=== PATIENT | female | born 1945 | race Caucasian/White ===

== ENCOUNTER 2017-04-24 17:33 | Observation (INO) ==
[2017-04-24] MEDS ORDERED: Scopolamine Patch 1.5 MG PATCH.TD72 TD ONE (17:51)
[2017-04-24] MEDS ORDERED: *HR* Promethazine 25 MG/ML VIAL IM ONE (17:51)
--- NOTE | 2017-04-24 17:52 | Emergency Department Note ---
Disposition Clinical Impression: Vertigo Nausea and vomiting Qualifiers: Vomiting type: unspecified Vomiting Intractability: intractable Qualified Code( s): R11.2 - Nausea with vomiting, unspecified Left lower lobe pneumonia Qualifiers: Pneumonia type: due to unspecified organism Qualified Code(s): J18.1 - Lobar pneumonia, unspecified organism Disposition: Admitted As Inpatient Condition: Good Instructions: Vertigo (ED) Referrals: Emiliano Trinidad MD [Primary Care Provider] - Forms: ED Satisfaction Letter Time of Disposition: 19:29 Nausea/Vomiting/Diarrhea HPI - General Chief complaint: ED Nausea/Vomiting/Diarrhea Stated complaint: N/V, dizziness Time Seen by Provider: 04/24/17 17:37 Source: patient, EMS Mode of arrival: ambulatory Limitations: no limitations Nursing Notes Reviewed: Yes Vital Signs Reviewed: Yes - History of Present Illness HPI Narrative: Patient is a 71-year-old female with past medical history of A. fib, currently on diltiazem for rate control and Coumadin for anticoagulation. She also has a history of benign positional vertigo and takes meclizine at home occasionally for this. She presents today via EMS due to nausea, vomiting, vertigo with description of the room spinning when she opens her eyes, it is worsen when she turns her head to the right. She also noted some mild fullness feeling of the right ear prior to this starting. Denies any other numbness, tingling, weakness , chest pain, shortness of breath, fevers, diarrhea. She took one meclizine tablet around 4:10 PM about an hour prior to arrival. - Related Data Home Medications Medication Instructions Recorded Confirmed Atorvastatin [Lipitor] 10 mg PO HS 03/01/15 01/11/16 Acetaminophen [Tylenol] 500 mg PO Q6HR PRN 01/11/16 01/11/16 DiphenhydraMINE [Benadryl] 25 mg PO Q6HR PRN 01/11/16 01/11/16 LORazepam [Ativan] 0.5 mg PO HS 01/11/16 01/11/16 Meclizine HCl [Verticalm] 25 mg PO BID PRN 01/11/16 01/11/16 Previous Rx's Medication Instructions Recorded Levothyroxine [Synthroid] 50 mcg PO 0630 #30 tablet 03/02/15 Diltiazem CD (24hr) [Cardizem CD] 180 mg PO DAILY 30 Days cap.er.24h 01/11/16 Warfarin [Coumadin] 3 mg PO 1800 10 Days tablet 01/11/16 Allergies Allergy/AdvReac Type Severity Reaction Status Date / Time No Known Allergies Allergy Verified 03/01/15 15:58 All systems ED: reviewed and negative except as stated. Constitutional: Denies: fever ENT ED: Reports: other (vertigo). Denies: ear pain, throat pain, hearing loss Cardiovascular: Denies: chest pain, palpitations Respiratory: Denies: cough, dyspnea, wheezes Gastrointestinal: Reports: nausea, vomiting. Denies: abdominal pain, diarrhea, constipation, hematemesis Genitourinary: Denies: urgency, dysuria Neurological: Reports: vertigo. Denies: weakness, numbness, paresthesias Past Medical History - Past Medical History Attestation: Yes The following information was validated with the patient. Source: patient Medical history: Reports: atrial fibrillation, hyperlipidemia, thyroid disease Surgical history: Reports: cholecystectomy, other (b/l breast lumpectomies, adenoidectomy, tubal ligatoin, thyroidectomy) - Social History Smoking Status: Never smoker Smokeless Tobacco Status: No Alcohol use: Reports: none Drug use: Reports: none Physical Exam Patient lying in bed with her eyes closed, actively nauseous; vomited when trying to turn head to right; has increased vertigo when turning head to right. - General Limitations: no limitations General appearance: alert - Head Head exam: atraumatic, normocephalic, normal inspection - Eye Eye exam: Present: PERRL, EOMI, other (rightward nystagmus) - ENT ENT exam: normal exam, normal oropharynx, mucous membranes moist - Neck Neck exam: Present: normal inspection, full ROM, trachea midline. Absent: tenderness - Chest Chest inspection: Present: normal inspection, symmetric chest wall rise - Respiratory Respiratory exam: Present: normal lung sounds bilaterally - Cardiovascular Cardiovascular exam: Present: regular rate, normal rhythm, normal heart sounds - Abdominal Exam Abdominal exam: Present: soft, Non-Tender. Absent: tenderness, distention, guarding, rebound, rigidity - Extremities Exam Extremities exam: Present: normal inspection, full ROM. Absent: tenderness, pedal edema - Neurological Exam Neurological exam: Present: alert, oriented X3, CN II-XII intact. Absent: motor sensory deficit - Psychiatric Psychiatric exam: Present: normal affect, normal mood - Skin Skin exam: Present: warm, dry, intact, normal color Course Course Narrative: Patient mildly hypertensive. Otherwise, the rest of the vitals were within normal limits on my exam. Patient is lying on her back, eyes are closed, she is visibly nauseous. She has increased vertigo when she turns her head to the right and vomited once when trying to do so. Rightward nystagmus. Otherwise, no focal neurologic deficits. Heart regular rate and rhythm, lungs clear to auscultation, abdomen soft and benign. Current concern is for benign positional vertigo. She has had this multiple times in the past, has prescriptions for meclizine that she takes at home occasionally for vertigo. Due to nausea and vomiting, we will also obtain EKG, chest x-ray, basic blood work and troponin. She does have a history of A. fib and is currently on diltiazem. EKG shows normal sinus rhythm with no acute ST changes. We will give the patient Phenergan for nausea control, scopolamine patch to help with dizziness. Patient took meclizine at 4:10 PM prior to coming in. This has only been about an hour ago. Will not redose meclizine at this time. 19:03 Patient still has nausea, rightward nystagmus, and cannot open eyes without getting nauseous. Patient also found to have LLL pneumonia. We will give the patient azithromycin, Rocephin. Will admit for left lower lobe pneumonia, intractable nausea and vomiting, intractable vertigo. Vital Signs Temperature 97.4 F L 04/24/17 17:34 Pulse Rate 88 04/24/17 17:34 Respiratory Rate 16 04/24/17 17:34 Blood Pressure 156/93 04/24/17 17:34 O2 Sat by Pulse Oximetry 94 04/24/17 17:34 Temperature 97.4 F L 04/24/17 17:34 Pulse Rate 88 04/24/17 17:34 Respiratory Rate 16 04/24/17 17:34 Blood Pressure 156/93 04/24/17 17:34 O2 Sat by Pulse Oximetry 94 04/24/17 17:34 Oxygen Delivery Oxygen Delivery Room Air Nausea/Vomiting/Diarrhea - MDM Narrative Medical decision making narrative: Patient still has nausea, rightward nystagmus, and cannot open eyes without getting nauseous. Patient also found to have LLL pneumonia. We will give the patient azithromycin, Rocephin. Will admit for left lower lobe pneumonia, intractable nausea and vomiting, intractable vertigo - Medical Records Medical records reviewed: Yes I reviewed the patient's medical records. - Lab Data Lab results reviewed: Yes I reviewed the patient's lab results. Result diagrams: 04/24/17 17:44 04/24/17 17:44 Lab Results 04/24/17 04/24/17 04/24/17 Range/Units 17:44 17:44 17:44 WBC 7.7 (4.3-11.1) K/mcL RBC 4.14 (3.82-4.97) M/mcL Hgb 12.9 (11.5-15.4) g/dL Hct 39.0 (35.3-44.9) % MCV 94.2 (83.0-100.0) fL MCH 31.2 (28.0-33.3) pg MCHC 33.1 (31.6-35.5) g/dL RDW 11.9 (11.5-14.5) % Plt Count 292 (140-400) K/mcL MPV 8.8 L (9.4-12.4) fL Immature Gran % 0.4 (0-4) % Seg Neutrophils % 38.2 % Lymphocytes % 47.3 % Monocytes % 9.0 % Eosinophils % 4.2 % Basophils % 0.9 % Neutrophils # 2.9 (1.6-8.9) K/mcL Lymphocytes # 3.6 (0.6-4.6) K/mcL Monocytes # 0.7 (0.0-1.3) K/mcL Eosinophils # 0.3 (0.0-0.6) K/mcL Basophils # 0.1 (0.0-0.2) K/mcL PT (9.4-12.1) Seconds INR Sodium 142 (136-145) mEq/L Potassium 3.0 L (3.5-4.5) mEq/L Chloride 106 (98-109) mEq/L Carbon Dioxide 23 (19-29) mEq/L BUN 26 H (7-20) mg/dL Creatinine 0.88 (0.57-1.11) mg/dL Est GFR ( Amer) > 60 (> 60) Est GFR (Non-Af Amer) > 60 (> 60) BUN/Creatinine Ratio 30 H (6-26) Glucose 179 H (70-99) mg/dL Calculated Osmolality 303 H (280-300) Calcium 8.6 (8.6-10.8) mg/dL Troponin I 0.00 (0-0.03) ng/mL 04/24/17 Range/Units 17:44 WBC (4.3-11.1) K/mcL RBC (3.82-4.97) M/mcL Hgb (11.5-15.4) g/dL Hct (35.3-44.9) % MCV (83.0-100.0) fL MCH (28.0-33.3) pg MCHC (31.6-35.5) g/dL RDW (11.5-14.5) % Plt Count (140-400) K/mcL MPV (9.4-12.4) fL Immature Gran % (0-4) % Seg Neutrophils % % Lymphocytes % % Monocytes % % Eosinophils % % Basophils % % Neutrophils # (1.6-8.9) K/mcL Lymphocytes # (0.6-4.6) K/mcL Monocytes # (0.0-1.3) K/mcL Eosinophils # (0.0-0.6) K/mcL Basophils # (0.0-0.2) K/mcL PT 23.7 H (9.4-12.1) Seconds INR 2.2 Sodium (136-145) mEq/L Potassium (3.5-4.5) mEq/L Chloride (98-109) mEq/L Carbon Dioxide (19-29) mEq/L BUN (7-20) mg/dL Creatinine (0.57-1.11) mg/dL Est GFR ( Amer) (> 60) Est GFR (Non-Af Amer) (> 60) BUN/Creatinine Ratio (6-26) Glucose (70-99) mg/dL Calculated Osmolality (280-300) Calcium (8.6-10.8) mg/dL Troponin I (0-0.03) ng/mL - Radiology Data Radiology results reviewed: Yes I reviewed the patient's radiology results. - EKG Data EKG attestation: Yes I reviewed and interpreted this EKG. EKG results narrative: 04/24/2017 at 17:44. Normal sinus rhythm. Rate 82. AR 149. QRS 106. QTC 457. Normal axis. No acute ST elevation or depression. SVijay - Mumtaz Situation: Demographics, MOA Background: Presenting Complaint, Relevant PMH, Meds, & Allergies Assessment: Vital Signs, Course and respsone to treatment, Exam Concerns, Patient/Family Expectation, Pertinant Lab Results, Outstanding Labs Recommendation: Barrier(s) to disposition, Recommendation based on pending studies, treatments, or consults S.Mickie Report Given to: Dr. Kobi Pandya Repor Time: 19:29
[2017-04-24 18:04] LABS: Basophils # 0.1 K/mcL (0.0-0.2); Basophils % 0.9 %; Eosinophils # 0.3 K/mcL (0.0-0.6); Eosinophils % 4.2 %; Hemoglobin 12.9 g/dL (11.5-15.4); Immature Granulocytes % 0.4 % (0-4); Lymphocytes # 3.6 K/mcL (0.6-4.6); Lymphocytes % 47.3 %; Mean Corpuscular HGB Conc 33.1 g/dL (31.6-35.5); Mean Corpuscular Hemoglobin 31.2 pg (28.0-33.3); Mean Corpuscular Volume 94.2 fL (83.0-100.0); Mean Platelet Volume 8.8 fL (9.4-12.4); Monocytes # 0.7 K/mcL (0.0-1.3); Neutrophils # 2.9 K/mcL (1.6-8.9); Platelet Count 292 K/mcL (140-400); Red Blood Count 4.14 M/mcL (3.82-4.97); Red Cell Distribution Width 11.9 % (11.5-14.5); Segmented Neutrophils % 38.2 %
[2017-04-24 18:12] LABS: INR 2.2; Prothrombin Time 23.7 Seconds (9.4-12.1)
[2017-04-24 18:40] LABS: BUN/Creatinine Ratio 30 (6-26); Blood Urea Nitrogen 26 mg/dL (7-20); Calcium 8.6 mg/dL (8.6-10.8); Carbon Dioxide 23 mEq/L (19-29); Chloride 106 mEq/L (98-109); Glucose 179 mg/dL (70-99); Osmolality,Calculated 303 (280-300); Sodium 142 mEq/L (136-145); eGFR For African Americans > 60 (> 60); eGFR For Non-African Americans > 60 (> 60)
--- NOTE | 2017-04-24 18:54 | Emergency Department Note ---
START Narrative - START START: I examined this patient and my medical decision-making was reviewed with the Resident Physician. I agree with the documented findings, disposition and treatment plan as described except to the extent set forth below. 71 year old female presents to the ED with complaitns of vertigo and generlized weakness that started early today. she states that she typically has veritgo and takes meclizine for it but it has only given her mild relief. she states that it is difficult for her to open her eyes because the room is spinning especially when she moves her hyead and she has horizontal nystagmus presents on exam. Marilee also has been experincing nausea nd vomitting in addition to his and mild productive cough and subjective fevers at home. It appears she has LLL pnuemoina in addition her symptoms have moderately improved with the scopolamine patch and phenegran although nystagmus is still presnst but her nausea had improed and now she can open her eyes. Due to her age and symptoms and with a history of asthma she is likely to deteriorate quickly if she sent home, we will admit ot medicine today
[2017-04-24] MEDS ORDERED: Azithromycin 500 MG in D5% in Water 250 ML IVPB ONE (18:57)
[2017-04-24] MEDS ORDERED: D5% in Water 250 ML ONE (19:40)
[2017-04-24] MEDS ORDERED: Ondansetron ODT 4 MG TAB.RAPDIS SL PRN (20:52)
[2017-04-24 21:10] LABS: Magnesium 2.4 mg/dL (1.6-2.6)
--- NOTE | 2017-04-24 21:22 | Internal Med History&Physical ---
<Maurice Harper - Last Filed: 04/25/17 01:21> Date of Encounter: 04/25/17 Time of Encounter: 20:15 Assessment and Plan (1) BPPV (benign paroxysmal positional vertigo) Current visit: Yes Status: Acute Patient has a history of BPPV. She says that her symptoms started once she quickly turned her head around. She denies LOC. Her neurologic exam was normal. Patient does history of atrial fibrillation, but her current EKG was NSR with no ST-elevations or acute ischemic changes. Troponin was negative. She denies any chest pain or SOB. An Hayder was attempted by the ER physician, but the patient quickly became nauseous and vomited. I offered to do the maneuver as well, but the patient refused in fear that she might vomit. - IV fluids. - Reattempt Hayder Maneuver once patient's nausea improves a little. Consider giving meclizine before the attempt. Qualifiers: Laterality: unspecified laterality Qualified Code(s): H81.10 - Benign paroxysmal vertigo, unspecified ear (2) Aspiration pneumonia Current visit: Yes Status: Acute CXR shows new onset left lower lobe PNA when compared to previous CXR. Patient was not c/o any wheezing, coughing, or fever at any recent point of time. She did display some wheezing on exam in the left lower lung charles. Given that she has been vomiting profusely today, her risk of aspiration PNA is quite high. She was given ceftriaxone and azithromycin in the ED. BP elevated at 156/93, but vitals otherwise stable and afebrile. - Continue ceftriaxone daily. - Start metronidazole daily. - Blood cultures. Qualifiers: Aspiration pneumonia type: due to vomit Laterality: left Lung location: lower lobe of lung Qualified Code(s): J69.0 - Pneumonitis due to inhalation of food and vomit (3) History of atrial fibrillation Current visit: Yes Status: Acute EKG shows NSR with no acute ischemic changes. Rate controlled. - Continue home meds of cardizem and coumadin. (4) Hypokalemia Current visit: No Status: Acute Potassium level at 3.0 due to excessive vomitting. - 40 meq KCL PO. - IVF fluids with 20 meq KCL. - Recheck potassium in AM. (5) HTN (hypertension) Current visit: No Status: Chronic BP controlled at 135/87. - Continue to monitor. Qualifiers: Hypertension type: essential hypertension Qualified Code(s): I10 - Essential (primary) hypertension (6) HLD (hyperlipidemia) Current visit: No Status: Chronic - Continue with home med of lipitor. Qualifiers: Hyperlipidemia type: pure hypercholesterolemia Qualified Code(s): E78.00 - Pure hypercholesterolemia, unspecified; E78.0 - Pure hypercholesterolemia (7) Hypothyroidism Current visit: No Status: Chronic - Continue home med of synthroid. Qualifiers: Hypothyroidism type: unspecified Qualified Code(s): E03.9 - Hypothyroidism , unspecified (8) DVT prophylaxis Current visit: Yes Status: Acute - On coumadin. Internal Medicine - H&P: HPI Chief complaint: Dizziness, nausea, vomiting Admitted From: Emergency Dept History of present illness: Ms. Delaney is a 71 year old female with a PMH of atrial fibrillation, HLD, hypothyroidism, and recurrent BPPV that presents for dizziness, nausea, and vomiting. Patient said that around 4:00 PM today she started to experience dizziness as she quickly turned her head around while walking. She proceeded to lie down, but the dizziness did not improve. She began to feel nauseous around 30 minutes later and started vomiting. She admits to a MO, but says this has been a chronic issue and is usually relieved by Tylenol. She denies any vision changes. She denies any recent illness, coughing, fever, chest pain, palpitations, or SOB. She denies any ear ache or ringing in her ears. She usually takes meclazine for her dizziness/nausea, but it did not seem to work today. Her symptoms did not improve until she was able to come to the ER and was given scopolamine. Past Med Surg Social Fam HX - Past Medical History Medical history: atrial fibrillation, hyperlipidemia, thyroid disease - Past Surgical History Surgical History: cholecystectomy, other (b/l breast lumpectomies, adenoidectomy , tubal ligatoin, thyroidectomy) - Social History Smoking Status: Never smoker Smokeless Tobacco Status: No Alcohol use: none Drug use: none - Family History Father Adopted: No Family Member Ethnicity: Non- Living Status: Hx Family Cardiac Disorders: Yes (vavular heart disease) Mother Adopted: No Family Member Ethnicity: Non- Living Status: Internal Medicine - H&P: Meds Atorvastatin [Lipitor] 10 mg PO HS 03/01/15 [History] Levothyroxine [Synthroid] 50 mcg PO 0630 #30 tablet 03/02/15 [Rx] Acetaminophen [Tylenol] 500 mg PO Q6HR PRN 01/11/16 [History] Diltiazem CD (24hr) [Cardizem CD] 180 mg PO DAILY 30 Days cap.er.24h 01/11/16 [ Rx] DiphenhydraMINE [Benadryl] 25 mg PO Q6HR PRN 01/11/16 [History] LORazepam [Ativan] 0.5 mg PO HS 01/11/16 [History] Meclizine HCl [Verticalm] 25 mg PO BID PRN 01/11/16 [History] Warfarin [Coumadin] 3 mg PO 1800 10 Days tablet 01/11/16 [Rx] 3 Allergy/AdvReac Type Severity Reaction Status Date / Time No Known Allergies Allergy Verified 03/01/15 15:58 All Systems PM: A 10-system review of systems was performed and is negative for pertinent findings except as documented above in the HPI. - Constitutional Constitutional: no chills, no fever(s), no weakness - EENT Eyes: no change in vision - Cardiovascular Cardiovascular ROS IM: no chest pain, no dyspnea, no lightheadedness - Respiratory Respiratory: no cough, no dyspnea, no wheezing - Gastrointestinal Gastrointestinal: nausea, vomiting, no abdominal pain, no constipation, no diarrhea, no loose stools - Genitourinary Genitourinary: no difficulty voiding, no dysuria, no hematuria - Neurological Neurological ROS: dizziness, headache(s), vertigo, no numbness, no tingling - Constitutional Vitals: Temp Pulse Resp BP Pulse Ox 97.4 F L 75 20 146/94 97 04/24/17 17:34 04/24/17 20:29 04/24/17 20:29 04/24/17 20:29 04/24/17 20:29 General appearance: Present: mild distress, A&O X 3, answers questions appropriately - Eye Eye exam: Present: EOMI, PERRL Pupils: Present: PERRL - Respiratory Respiratory exam: Present: wheezes (Posterior left lower lung field. ). Absent : CTAB, rales, rhonchi - Cardiovascular Cardiovascular exam: Present: RRR, +S1, +S2 - GI/Abdominal GI/Abdominal exam: Present: normal bowel sounds, soft. Absent: distended, guarding, rebound, tenderness - Extremities Exam Extremities exam: Present: full ROM, normal capillary refill, normal inspection , radial pulses palpable and symmetrical. Absent: cyanotic, pedal edema, tenderness Additional comments: Pedal pulses intact and symmetrical bilaterally. - Neurological Exam Neurological exam: Present: CN II-XII intact, oriented X3, reflexes normal ( Unable to obtain LE DTRs since patient was unable to relex legs. ), strengths equal and symetr throughout. Absent: no focal deficits, facial droop, speech deficit Internal Med - H&P Results - Labs CBC & Chem 7: 04/24/17 17:44 04/24/17 17:44 <Emily Gaxiola - Last Filed: 04/25/17 04:11> Date of Encounter: 04/24/17 Internal Medicine - H&P: HPI History of present illness: Ms. Delaney is a 71 year old female All Systems PM: A 10-system review of systems was performed and is negative for pertinent findings except as documented above in the HPI. - Constitutional Vitals: Temp Pulse Resp BP Pulse Ox 98.5 F 67 15 115/67 97 04/24/17 21:41 04/25/17 01:06 04/25/17 01:06 04/25/17 01:06 04/25/17 01:06 Internal Med - H&P Results - Labs CBC & Chem 7: 04/24/17 17:44 04/24/17 17:44 - Attending Attestation Seen / examined personally. D/w with resident. Patient came in with Pna/ Vertigo. She has hx of AFib, INR only 1.3. Exam shows clear lungs, vertigo has resolved. Gait deffered. If continues to have vertigo than suggest to check MRI brain. patient was seen on 04/24/2017.
[2017-04-24] MEDS: 0.9 % Sodium Chloride w KCl 20 MEQ/1,000 ML MLS IVC SCH (22:15)
[2017-04-24] MEDS ORDERED: cefTRIAXone 1,000 MG in Water for inj. (sterile) 10 ML IVP SCH (22:30)
[2017-04-24] MEDS: metroNIDAZOLE 250 MG TABLET PO SCH (22:44)
[2017-04-25 04:35] LABS: Basophils % 0.4 %; Eosinophils # 0.1 K/mcL (0.0-0.6); Eosinophils % 1.2 %; Hematocrit 36.3 % (35.3-44.9); Hemoglobin 12.1 g/dL (11.5-15.4); Immature Granulocytes % 0.3 % (0-4); Lymphocytes # 1.7 K/mcL (0.6-4.6); Lymphocytes % 23.5 %; Mean Corpuscular HGB Conc 33.3 g/dL (31.6-35.5); Mean Corpuscular Hemoglobin 31.6 pg (28.0-33.3); Mean Corpuscular Volume 94.8 fL (83.0-100.0); Monocytes # 0.6 K/mcL (0.0-1.3); Monocytes % 7.8 %; Platelet Count 242 K/mcL (140-400); Red Blood Count 3.83 M/mcL (3.82-4.97); Red Cell Distribution Width 11.9 % (11.5-14.5); Segmented Neutrophils % 66.8 %
[2017-04-25 04:50] LABS: BUN/Creatinine Ratio 24 (6-26); Blood Urea Nitrogen 18 mg/dL (7-20); Calcium 8.6 mg/dL (8.6-10.8); Carbon Dioxide 26 mEq/L (19-29); Chloride 112 mEq/L (98-109); Glucose 102 mg/dL (70-99); Osmolality,Calculated 300 (280-300); Potassium 4.1 mEq/L (3.5-4.5); Sodium 144 mEq/L (136-145); eGFR For African Americans > 60 (> 60); eGFR For Non-African Americans > 60 (> 60)
[2017-04-25 06:50] VITALS: BP 117/66
[2017-04-25] MEDS: 0.9 % Sodium Chloride w KCl 20 MEQ/1,000 ML MLS IVC SCH (08:03)
[2017-04-25] MEDS: metroNIDAZOLE 250 MG TABLET PO SCH (08:05)
[2017-04-25] MEDS ORDERED: Diltiazem CD (24hr) 180 MG CAPSULE PO SCH (09:00)
--- NOTE | 2017-04-25 12:00 | Discharge Summary ---
Date of Encounter: 04/25/17 Time of Encounter: 11:15 - Discharge Diagnosis (1) BPPV (benign paroxysmal positional vertigo) Priority: Primary Status: Resolved Qualifiers: Laterality: unspecified laterality Qualified Code(s): H81.10 - Benign paroxysmal vertigo, unspecified ear (2) HLD (hyperlipidemia) Priority: Secondary Status: Chronic Qualifiers: Hyperlipidemia type: pure hypercholesterolemia Qualified Code(s): E78.00 - Pure hypercholesterolemia, unspecified; E78.0 - Pure hypercholesterolemia (3) HTN (hypertension) Priority: Secondary Status: Chronic Qualifiers: Hypertension type: essential hypertension Qualified Code(s): I10 - Essential (primary) hypertension (4) Aspiration pneumonia Priority: Secondary Status: Acute Qualifiers: Aspiration pneumonia type: due to vomit Laterality: left Lung location: lower lobe of lung Qualified Code(s): J69.0 - Pneumonitis due to inhalation of food and vomit (5) History of atrial fibrillation Priority: Secondary Status: Chronic (6) DVT prophylaxis Priority: Secondary Status: Acute (7) Obesity (BMI 30.0-34.9) Priority: Secondary Status: Chronic - Discharge Medications Prescriptions: levoFLOXacin [Levaquin] 750 mg PO DAILY #6 tablet Home Medications: Atorvastatin [Lipitor] 10 mg PO HS 03/01/15 [History] Acetaminophen [Tylenol] 500 mg PO Q6HR PRN 01/11/16 [History] Diltiazem CD (24hr) [Cardizem CD] 180 mg PO DAILY 30 Days cap.er.24h 01/11/16 [ Rx] DiphenhydraMINE [Benadryl] 25 mg PO Q6HR PRN 01/11/16 [History] LORazepam [Ativan] 0.5 mg PO HS 01/11/16 [History] Meclizine HCl [Verticalm] 25 mg PO BID PRN 01/11/16 [History] Warfarin [Coumadin] 2 mg PO DAILY 04/25/17 [History] levoFLOXacin [Levaquin] 750 mg PO DAILY #6 tablet 04/25/17 [Rx] Allergies/Adverse Reactions: 3 Allergy/AdvReac Type Severity Reaction Status Date / Time No Known Allergies Allergy Verified 04/25/17 10:05 Procedures/tests Complete & Pending: Procedures Performed prior 72 hours Category Date Time Status ECG 12 lead ECG [ECG] Routine Y 04/24/17 17:44 Completed Date of admission: 04/24/17 19:46 Primary care physician: Emiliano Trinidad MD Consults: 04/24/17 22:38 Consult to Pastoral Services [CONS] Routine Comment: Discharging clinician: Aleksandra Camargo Anticipated date of discharge: 04/25/17 - Patient Status Disposition: Home, Self-Care Condition: Good Functional capacity at discharge: independent ambulation Overall status at discharge: patient is back to baseline - Discharge Instructions Follow Up With: Emiliano Trinidad MD [Primary Care Provider] - Additional Instructions: Please follow up with your primary care physician within five days after your discharge from the hospital. Please continue oral antibiotics as prescribed. Resume all your other home medications as prescribed by your primary care physician. - Diet and Activity Activity: increase activity as tolerated Diet: low fat, low cholesterol, low salt diet Hospital course: Ms. Delaney is a 71 year old female with PMH of Afib, HLD, Hypothyroidism, BPPV who as admitted for dizziness, vertigo,n/v, and PNA. Upon arrival to the ER, juan david maneuver was done by the ER physician which resulted in recurrent n/v. She was also found to have Left lower lobe PNA on her CXR. She was started on empiric abx. During my evaluation this morning, pt reported of complete resolution of her dizziness, nausea, and vomiting. Denies any discomfort and reports of feeling significantly better. She is currently hemodynamically stable and will be discharged to home with follow up with her PCP. Pt demonstrates understanding of her diagnosis and agrees with the discharge care and plan. - Time Spent with Patient Total time spent providing and/or coordinating discharge services: Less than 30 minutes - Constitutional Vitals: Temp Pulse Resp BP Pulse Ox 98.5 F 84 18 117/66 96 04/24/17 21:41 04/25/17 06:47 04/25/17 06:47 04/25/17 06:47 04/25/17 06:47 General appearance: Present: cooperative, A&O X 3, pleasant, no acute distress, obese, answers questions appropriately - Head Head exam: Present: atraumatic, normocephalic - Eye Eye exam: Present: conjuntiva pink, sclera anicteric - Respiratory Respiratory exam: Present: CTAB. Absent: accessory muscle use, rales, rhonchi, wheezes - Cardiovascular Cardiovascular exam: Present: RRR, +S1, +S2. Absent: diastolic murmur, gallop, rubs, systolic murmur - GI/Abdominal GI/Abdominal exam: Present: normal bowel sounds, soft, no peritoneal signs. Absent: distended, tenderness - Extremities Exam Extremities exam: Present: warm, radial pulses palpable and symmetrical. Absent : calf tenderness, cyanotic, pedal edema - Neurological Exam Neurological exam: Present: alert, oriented X3 - Psychiatric Psychiatric exam: Present: normal affect, normal mood
[2017-04-25] MEDS ORDERED: *HR* Warfarin 3 MG TABLET PO SCH (18:00)
--- NOTE | 2017-04-26 15:01 | Electrocardiograph Report ---
[place] [id number] Test Date: 2017-04-24 Pat Name: Vanna Delaney Department: 103 Room: [facility] Gender: F Manager [employer]: NERY : 1945 Requested By: Aleksandra Camargo Order Number: [id number] Reading MD: Gagan Olsen Measurements Intervals [place] Rate: 82 P: 54 MS: 149 QRS: 13 QRSD: 106 T: 15 QT: 418 QTc: 457 Interpretive Statements SINUS RHYTHM BASELINE ARTIFACT Electronically Signed On 04-26-2017 15:00:24 EST by Gagan Olsen
== END 2017-04-25 13:27 | disposition home or self-care (01) ==
LOC: 2NENU 17:33 → EMEROO 17:33 → 2NENU 21:23
PROVIDERS: ADMIT Family Medicine; ATTEND Internal Medicine